=== PATIENT | female | born 1990 | race Caucasian/White ===

== ENCOUNTER 2017-01-02 19:19 | Emergency (ER) | payer BC ==
[2017-01-02 19:26] VITALS: BP 126/72
[2017-01-02] MEDS ORDERED: methylPREDNISolone Sodium Succinate 125 MG/2 ML SDV IM ONE (20:29)
--- NOTE | 2017-01-02 20:35 | EDM.PDOC ---
ED HPI GENERAL MEDICAL PROBLEM - General Chief Complaint: Neurological Problem Stated Complaint: ROMANO'S PALSY Time Seen by Provider: 01/02/17 20:30 Source of Information: Reports: Patient History Limitations: Reports: No Limitations - History of Present Illness INITIAL COMMENTS - FREE TEXT/NARRATIVE: recurrent h/o romano's palsy during . 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 ED EXAM, NEURO - Physical Exam Exam: See Below Exam Limited By: No Limitations General Appearance: Alert, WD/WN, Mild Distress, Other (distraught) Ears: Hearing Grossly Normal Throat/Mouth: Normal Voice, No Airway Compromise Head Exam: Atraumatic Neck: Non-Tender, Full Range of Motion Respiratory/Chest: No Respiratory Distress Cardiovascular: Regular Rate, Rhythm GI/Abdominal: Soft, Non-Tender Neurological: Alert, Normal Mood/Affect, Normal Gait, Oriented x 3, Other ( right Romano's palsy droop) Extremities: No: Increased Warmth Psychiatric: Normal Affect, Normal Mood Skin Exam: Warm, Dry Course - Vital Signs Last Recorded V/S: Last Vital Signs Temp 36.6 C 01/02/17 19:22 Pulse 90 01/02/17 19:22 Resp 18 01/02/17 19:22 BP 126/72 01/02/17 19:22 Pulse Ox 97 01/02/17 19:22 - Orders/Labs/Meds Meds: Medications Discontinued Medications Generic Name Dose Route Start Last Admin Trade Name Freq PRN Reason Stop Dose Admin Methylprednisolone Sodium Succinate 125 mg 01/02/17 20:29 Solu-Medrol IM 01/02/17 20:30 ONETIME ONE Departure - Departure Time of Disposition: 20:33 Disposition: Home, Self-Care 01 Condition: Good Clinical Impression: Romano's palsy - Discharge Information Instructions: Romano Palsy Forms: ED Department Discharge Additional Instructions: 1) rest 2) use eye drops to right eye for discomfort 3) recheck is there is any change or concern rx given; medrol dospak
== END 2017-01-02 20:48 | disposition home or self-care (01) ==
LOC: DL.ED 19:19
DX: G51.0 Bell's palsy (principal); Z79.899 Other long term (current) drug therapy
CPT/HCPCS: 99283; J2930

== ENCOUNTER 2017-07-01 03:38 | Inpatient (IN) | payer BC ==
[2017-07-01] MEDS: Lactated Ringers 1,000 ML IV SCH ×2 (04:02→05:09)
[2017-07-01] MEDS ORDERED: Lactated Ringers 500 ML IV ONE (04:39)
[2017-07-01] MEDS ORDERED: Ondansetron 4 MG/2 ML SDV IV PRN (04:39)
[2017-07-01] MEDS ORDERED: Misoprostol 400 MCG (4 X 100 MCG TAB) RECTAL PRN (04:39)
[2017-07-01] MEDS ORDERED: Lidocaine 1% 30 ML SDV INJECT PRN (04:39)
[2017-07-01] MEDS ORDERED: Sodium Chloride 0.9% 10 ML Syringe FLUSH PRN ×2 (04:39→07:46)
[2017-07-01] MEDS ORDERED: Carboprost Tromethamine 250 MCG/1 ML Amp IM PRN (04:39)
[2017-07-01] MEDS ORDERED: Methylergonovine 0.2 MG/1 ML Amp IM PRN (04:39)
[2017-07-01] MEDS ORDERED: Acetaminophen 325 MG Tab PO PRN (04:39)
[2017-07-01] MEDS ORDERED: Oxytocin/Normal Saline 30 UNIT/500 ML BAG IV SCH (04:45)
[2017-07-01] MEDS ORDERED: fentaNYL 100 MCG/2 ML SDV ONE (04:54)
[2017-07-01] MEDS ORDERED: EPINEPHrine 1 MG/ML SDV ONE (04:55)
--- NOTE | 2017-07-01 05:34 | PCM.PRNOTE ---
- Free Text/Narrative Note: Requested to provide analgesia to full term patient in severe pain. Upon entering the room, patient is sitting on side of bed, complaining of severe abdominal pain and discomfort. Procedure was discussed with patient including adverse outcomes and expectations. Pt consented to analgesia, SAB/IT. Pt placed into a sitting position. Landmarks for SAB/IT were identified and marked. Back was prepped with betadine x3. A sterile, transparent, fenestrated drape was applied. Excess betadine was removed. Using 3 mL of a 1% lidocaine solution, a skin wheel was placed at the L3/L4 interspace. A 24 ga (4 inch) Pencan spinal needle was inserted until positive for CSF. Negative for heme or paresthesias. Injected fentanyl 20 mcg, sufentanil 10 mcg, and 9.75 mg of a 0.75% bupivacaine solution with an epi wash. Pt was placed left lateral position for approximately 20 minutes. There were zero complications or adverse outcomes. Will continue to monitor.
--- NOTE | 2017-07-01 07:06 | HP ---
PATIENT IDENTIFICATION: Cyndy Oshea is a 27-year-old G3, P1-1-0-2, intrauterine at 38-1/7 weeks confirmed with 20-2/7 weeks' ultrasound, who presents with contractions. HISTORY OF PRESENT ILLNESS: The patient has been seen in the clinic being 2+ cm over the last few weeks. She was evaluated earlier on the day before admission and was found to be 3+ cm. She subsequently was sent home as she was not having contractions and was followed closely. Night before admission at approximately 9 p.m., she started having contractions increasing in intensity and felt across the abdomen. They got worse over time until 1:30 in the morning on date of admission, where they became more frequent every 3 to 5 minutes, felt in the lower abdomen, radiating up to the upper abdomen, described as tightening, rated 8/10 and getting worse over time, nothing seemed to make them better. She subsequently presented to the hospital. She was initially evaluated by nurse and found to be 5 cm. Admission process started thereafter. Records were called for, reviewed as below, and supplemented by patient history. ANTEPARTUM LABS: ABO blood type A positive, negative antibody. Rubella immune. RPR nonreactive. Negative hepatitis B surface antigen, hep C, HIV, GC, and Chlamydia. Wet prep within normal limits. One-hour GTT was 94. Last platelets from the clinic were 175,000. GBS was negative in the third trimester. OBSTETRICAL HISTORY: 1. 36-5/7 weeks, delivered a female, spontaneous vaginal delivery, weighing 3005 g, complicated by thrombocytopenia. 2. 06/14/2014, 38 weeks, delivered a female via vacuum-assisted vaginal delivery weighing 3374 g. ALLERGIES: None. MEDICATIONS: vitamins. PAST MEDICAL/PAST SURGICAL HISTORY: Remarkable for tonsil and adenoidectomy. Baby tooth extraction when she was a child and wisdom teeth in 01/2015. History of chickenpox as a child and delivery as noted as above. FAMILY HISTORY: Maternal grandmother had liver cancer and is . Maternal grandfather had blood clot disorder. No known disease in mother or father. Sister has Olivarez's. Negative family history of defects, anesthesia problems, or bleeding problems. SOCIAL HISTORY: Cyndy works at the [employer] in [place]. , Bari, is a prince. They live right outside of [place] [address] [place]. No alcohol, tobacco, or drug use. Sexually active with male partner. REVIEW OF SYSTEMS: Otherwise reviewed and felt to be noncontributory. OBJECTIVE: Vital Signs: Blood pressure 114/78, heart rate is around 100 to 110, and temperature 99.1. Appearance: Female appears stated age, acting appropriate. Nontoxic appearance. Breathing through contractions, but answering questions appropriately in between. HEENT: Head is atraumatic. EOMs intact. PERRLA. No scleral icterus. No ovious otorhinnorhea. Mucous membranes are moist. Neck: No obvious tenderness. Lungs: Clear to auscultation bilaterally. No increased work of breathing. Heart: S1 and S2. Regular rate and rhythm. Abdomen: Gravid, Contreras's indeterminate, nontender, and nondistended. Bowel sounds positive. No other organomegaly, pulsatile masses, or obvious hernias. No rebound, rigidity, or guarding. Genitourinary: Normal external female genitalia. Normal position and presentation of urethra. Vaginal exam was 7 cm by my evaluation, 80% to 90% effaced, 0 station, vertex suspected. Bag of water felt and bulging. Extremities: Trace pedal edema. Deep tendon reflexes 2 to 3/4 bilaterally and symmetric in lower extremities. PSYCHIATRIC: Mood and affect are congruent. Judgment and insight are intact. Skin: Without cyanosis, clubbing, or jaundice. INVESTIGATIONS: White cell count 9.7, hemoglobin 11.2, and platelets 140,000. NST is found to be reactive and reassuring. Tocometer reveals contractions up to every 2 to 5 minutes apart. heart tone baseline is around 140s to 150s. ASSESSMENT AND PLAN: 1. Intrauterine at 38-1/7 weeks confirmed with 20-2/7 weeks' ultrasound. 2. Active labor. 3. Advanced cervical dilation that is rapidly advancing. 4. History of fast deliveries. 5. Group B Streptococcus negative. 6. Gestational thrombocytopenia, platelets 140,000. 7. 3, para 1-1-0-2. PLAN: The patient is requesting intrathecal. We will get this as soon as possible and then consider following her closely with artificial rupture of membranes thereafter. She understands and agrees with the above treatment plan. Otherwise, we will follow closely. [facility] /[id number]
[2017-07-01] MEDS ORDERED: Zolpidem 5 MG Tab PO PRN (07:46)
[2017-07-01] MEDS ORDERED: Simethicone 80 MG Tab.Chew PO PRN (07:46)
[2017-07-01] MEDS ORDERED: Benzocaine/Menthol 20%-0.5% Spray 56 GM Canister TOP PRN (07:46)
[2017-07-01] MEDS ORDERED: Oxytocin 10 Units/1 ML SDV IM PRN (07:46)
--- NOTE | 2017-07-01 07:48 | PN ---
DATE: 07/01/2017 SUBJECTIVE: The patient is now pain-free, status post intrathecal. OBJECTIVE: Blood pressure 106/66. heart tones in the 140s to 150s range and felt to be reassuring. Tocometer reveals contractions every 2 to 5 minutes apart. Vaginal exam reveals her to be 7+ cm, 90% effaced, 0 station, vertex suspected. Artificial rupture of membranes done yielding copious amounts of clear fluid. ASSESSMENT AND PLAN: Intrauterine at 38 and 1/7 weeks with active labor, advanced cervical dilation, now status post intrathecal and status post artificial rupture of membranes. We will continue to follow clinically and closely. [facility] /[id number]
--- NOTE | 2017-07-01 10:24 | DEL ---
DATE: 07/01/2017 PREOPERATIVE DIAGNOSES: 1. Intrauterine at 38-1/7 weeks, confirmed with 20-2/7 weeks' ultrasound. 2. Active labor upon admission. 3. Advanced cervical dilation. 4. History of fast deliveries. 5. Lives far from town. 6. Group B Streptococcus negative. 7. Gestational thrombocytopenia, platelets 140. 8. 3, para 1-1-0-2. POSTOPERATIVE DIAGNOSES: 1. Intrauterine at 38-1/7 weeks, confirmed with 20-2/7 weeks' ultrasound-delivered. 2. Active labor upon admission. 3. Advanced cervical dilation. 4. History of fast deliveries. 5. Lives far from town. 6. Group B Streptococcus negative. 7. Gestational thrombocytopenia, platelets 140. 8. 3, para 1-1-0-2. 9. Cord avulsion with delivery of the placenta. PROCEDURES PERFORMED: NST, artificial rupture of membranes, and spontaneous vaginal delivery on 07/01/2017. ANESTHESIA/ANALGESIA: The patient did receive an intrathecal in the first stage of labor. ESTIMATED BLOOD LOSS: 300 mL. FINDINGS: Female, scores of 8 and 9, weight pending. SUMMARY OF EVENTS: The patient is a 27-year-old, G3, P1-1-0-2, intrauterine at 38-1/7 weeks, admitted on 07/01/2017, in active labor with advanced cervical dilation. She went from 5 cm to 7 cm in less than hour, received her intrathecal, then underwent artificial rupture of membranes and followed closely thereafter. She had the urge to push with feeling cramps/contractions. I was called to the room. She was found to be in the second stage of labor. I donned with sterile gown and gloves. She started pushing with contractions. vertex was delivered in LORELEI presentation followed by anterior and posterior shoulder as well as rest of the without difficulty. Mouth and nares were suctioned. was resuscitated on mother's abdomen. Cord was then doubly clamped and cut. Then, approximately 10 mL of cord blood was obtained for labs. Placenta was then delivered with gentle cord traction and fundal massage within 10 minutes with cord avulsion noted with placenta seen at the vaginal introitus. After this happened, I was able to manually extract the placenta by grasping where the cord was inserted and pulling gently. Pitocin and fundal massage ensued thereafter, bleeding decreased. Perineum, vagina, and perirectal areas were examined and noted to have a small first-degree perineal laceration, nonbleeding, non-repaired after discussion with the patient. Mother and infant are currently stable at the time of dictation. [facility] /[id number]
--- NOTE | 2017-07-01 10:45 | OBOUT ---
DATE: 07/01/2017 DATE AND TIME OF NST: Date: 07/01/2017. Time: 4:14 to 4:34. REASON FOR NST: 1. Intrauterine at 38 and 1/7 weeks, confirmed with 20 and 2/7 week ultrasound. 2. Active labor. 3. Advanced cervical dilation. 4. History of fast deliveries. 5. Group B strep negative. 6. Gestational thrombocytopenia with platelets of 140. 7. 3, para 1-1-0-2. NST INTERPRETATION: During this time period, heart tone baseline is approximately 150, and there are at least two 15 x 15 beat per minute accelerations, making this strip reactive. It is also noted to be reassuring. Tocometer reveals potential 6 contractions felt by patient. ASSESSMENT: 1. Nonstress test, reactive and reassuring. 2. Tocometer with contractions. PLAN: Please see admit history and physical for further details. [facility] /[id number]
[2017-07-01] MEDS: Prenatal Multivitamin with Calcium/Folic Acid/Iron Tab PO SCH (14:25)
[2017-07-01] MEDS: Ibuprofen 800 MG Tab PO PRN (21:16)
[2017-07-01] MEDS: Docusate Sodium 100 MG Cap PO PRN (21:17)
[2017-07-02] MEDS: Prenatal Multivitamin with Calcium/Folic Acid/Iron Tab PO SCH (08:56)
[2017-07-02] MEDS: Ibuprofen 800 MG Tab PO PRN ×2 (08:56→20:53)
--- NOTE | 2017-07-02 10:58 | PN ---
DATE: 07/02/2017 day #1, status post spontaneous vaginal delivery. SUBJECTIVE: The patient is tolerating p.o., ambulating, urinating, passing flatus. OBJECTIVE: Vital Signs: Last set of vitals; temperature 98.2, heart rate 70, blood pressure 110/56, respiratory rate 16. Lungs: Clear to auscultation bilaterally. Heart: S1-S2. Regular rate and rhythm. Pelvic: Firm uterus around the umbilicus. Extremities: No peripheral edema. No calf pain. LABORATORY DATA: White cell count 7.6, hemoglobin 10.4, compared to predelivery hemoglobin 11.2, and platelets of a 120,000 compared to 140,000 upon admit. ASSESSMENT: 1. day #1 status post spontaneous vaginal delivery. 2. Gestational thrombocytopenia. Platelets are decreasing. We will check CBC tomorrow and follow clinically and closely. No obvious signs of active bleeding or concerns are noted at this point in time. Possible discharge tomorrow. This was discussed with patient. She understands and agrees the above treatment plan. [facility] /[id number]
[2017-07-02] MEDS ORDERED: fentaNYL 100 MCG/2 ML SDV ITHECAL ONE (15:36)
[2017-07-02] MEDS ORDERED: EPINEPHrine 1 MG/ML SDV ONE (15:36)
[2017-07-02] MEDS: Docusate Sodium 100 MG Cap PO PRN (20:55)
[2017-07-03] MEDS: Prenatal Multivitamin with Calcium/Folic Acid/Iron Tab PO SCH (07:59)
[2017-07-03] MEDS: Ibuprofen 800 MG Tab PO PRN (07:59)
[2017-07-03] MEDS: Docusate Sodium 100 MG Cap PO PRN (07:59)
[2017-07-03 10:21] VITALS: BP 114/69
--- NOTE | 2017-07-04 07:48 | DISCH ---
ADMIT DIAGNOSES: 1. Intrauterine at 38 and 1/7 weeks, confirmed with 20 and 2/7 weeks' ultrasound. 2. Active labor. 3. Advanced cervical dilation. 4. History of fast deliveries. 5. Living far from the hospital. 6. Group B Streptococcus negative. 7. Gestational thrombocytopenia, platelets of 140,000 upon admit. 8. 3, para 1-1-0-2. DISCHARGE DIAGNOSES: 1. Intrauterine at 38 and 1/7 weeks, confirmed with 20 and 2/7 weeks' ultrasound, delivered. 2. Active labor. 3. Advanced cervical dilation. 4. History of fast deliveries. 5. Living far from the hospital. 6. Group B Streptococcus negative. 7. Gestational thrombocytopenia, platelets of 140,000 upon admit. 8. 3, para 1-1-0-2. 9. Cord avulsion with delivery of the placenta requiring minimal extraction of the placenta at the vaginal introitus. PROCEDURES PERFORMED: NST, artificial rupture of membranes, spontaneous vaginal delivery on 07/01/2017. PROCEDURE PERFORMED: Steve Santos MD HISTORY OF PRESENT ILLNESS: Please see H and P. SUMMARY OF HOSPITAL COURSE: The patient was admitted on the above date with the above diagnosis, underwent above procedures, then went on to have a spontaneous vaginal delivery yielding a female with scores of 8 and 9, weighing 3575 g (7 pounds 14 ounces). Please see delivery note for further details. day #1, please see progress note. day #2, date of discharge, the patient was tolerating p.o., ambulating, urinating, passing flatus, and requesting discharge. PHYSICAL EXAMINATION: Vital Signs: Last set of vitals updated and listed in the chart. Temperature 98, heart rate 66, blood pressure 120/74, respiratory rate 16. Lungs: Clear to auscultation bilaterally. Heart: S1 and S2. Regular rate and rhythm. Pelvic: Firm uterus, -1 below umbilicus. No peripheral edema. No calf pain. DISCHARGE LABS: White cell count 6.2, hemoglobin 11.3, compared to predelivery hemoglobin 11.2, platelets 145,000 which has increased from admit platelets. CONDITION ON DISCHARGE COMPARED TO CONDITION ON ADMISSION: Improved. DISCHARGE INSTRUCTIONS: Diet. As tolerated. Activity: No lifting more than 20 pounds. No sit-ups or straining. Pelvic rest for the next 6 weeks with immediate return to fertility discussed with the patient. Reasons to return or go to the emergency room were discussed with the patient in detail including but not limited to, temperature greater than 100.4, foul- smelling discharge, red or hot breasts, or increased vaginal bleeding. DISCHARGE MEDICATIONS: 1. [id number] Tylenol or ibuprofen for pain. 2. vitamins x6 weeks. FOLLOWUP: Follow up in 6 weeks . I did discuss in the interim the reasons to return or go to the emergency room in regard to her infant as well as importance of followup and ramifications of not doing so. She understands and agrees with the above treatment plan. [facility] /[id number]
== END 2017-07-03 10:50 | disposition home or self-care (01) | DRG 560 ==
LOC: DL.OBCHECK 03:38 → DL.OB 03:58 → OBSVTOIN 07:31 → DL.OB 07:31 → DL.MS 21:59
PROVIDERS: ADMIT Family Medicine; ATTEND Family Medicine
PROC: 10E0XZZ Delivery of Products of Conception, External Approach (ICD-10-PCS; principal; 2017-07-01)
PROC: 10907ZC Drainage of Amniotic Fluid, Therapeutic from Products of Conception, Via Natural or Artificial Opening (ICD-10-PCS; 2017-07-01)
PROC: 00HU33Z Insertion of Infusion Device into Spinal Canal, Percutaneous Approach (ICD-10-PCS; 2017-07-01)
PROC: 3E0R3BZ Introduction of Anesthetic Agent into Spinal Canal, Percutaneous Approach (ICD-10-PCS; 2017-07-01)
DX: O99.12 Other diseases of the blood and blood-forming organs and certain disorders involving the immune mechanism complicating childbirth (principal); D69.6 Thrombocytopenia, unspecified; O70.0 First degree perineal laceration during delivery; Z3A.38 38 weeks gestation of pregnancy; Z37.0 Single live birth
CPT/HCPCS: 36415; 59409; 85027; A9270-GY; J0171; J2405; J2590; J3010; J7120

== ENCOUNTER 2023-06-07 15:05 | Inpatient (IN) | payer BC ==
[2023-06-07] MEDS ORDERED: Methylergonovine 0.2 MG/1 ML Amp IM PRN (15:59)
[2023-06-07] MEDS ORDERED: Ondansetron 4 MG/2 ML SDV IVPUSH PRN (15:59)
[2023-06-07] MEDS ORDERED: Sodium Chloride 0.9% 10 ML Syringe FLUSH PRN ×2 (15:59→20:03)
[2023-06-07] MEDS ORDERED: Tranexamic Acid 1,000 MG in Sodium Chloride 0.9% 100 ML IV PRN (15:59)
[2023-06-07] MEDS ORDERED: Misoprostol 400 MCG (4 X 100 MCG TAB) RECTAL PRN (15:59)
[2023-06-07] MEDS ORDERED: Carboprost Tromethamine 250 MCG/1 ML Amp IM PRN (15:59)
[2023-06-07] MEDS ORDERED: Lidocaine 1% 30 ML SDV INJECT ONE (15:59)
[2023-06-07] MEDS ORDERED: Acetaminophen 325 MG Tab PO PRN (15:59)
[2023-06-07] MEDS ORDERED: Lactated Ringers 1,000 ML IV ONE (15:59)
[2023-06-07] MEDS ORDERED: Oxytocin/Normal Saline 30 UNIT/500 ML BAG IV SCH (16:00)
[2023-06-07 16:25] LABS: HEMATOCRIT 35.4 % (37.0-47.0); HEMOGLOBIN 11.8 g/dL (12.0-16.0); MEAN CORPUSCULAR HEMOGLOBIN 31.2 pg (27.0-34.0); MEAN CORPUSCULAR HGB CONC 33.3 g/dL (33.0-35.0); MEAN CORPUSCULAR VOLUME 93.7 fL (80-100); RED BLOOD CELL COUNT 3.78 10^6/uL (4.2-5.4); WHITE BLOOD CELL COUNT,WBC 7.3 10^3/uL (5.0-10.0)
[2023-06-07] MEDS: Lactated Ringers 1,000 ML IV SCH ×2 (18:10→19:40)
[2023-06-07] MEDS ORDERED: Bupivacaine 0.25% 10 ML SDV ONE (18:22)
[2023-06-07] MEDS ORDERED: fentaNYL 100 MCG/2 ML SDV ONE (18:22)
[2023-06-07] MEDS ORDERED: ePHEDrine 50 MG/ML SDV IVPUSH PRN (18:44)
[2023-06-07] MEDS ORDERED: Phenylephrine HCl In 0.9% NaCl 1 MG/10 ML Syringe IVPUSH PRN (18:44)
[2023-06-07] MEDS ORDERED: Ropivacaine 200 MG in Premix Bag 1 BAG EPIDUR SCH (18:45)
[2023-06-07] MEDS ORDERED: Oxytocin 10 Units/1 ML SDV IM PRN (20:03)
[2023-06-07] MEDS ORDERED: Zolpidem 5 MG Tab PO PRN (20:03)
[2023-06-07] MEDS ORDERED: Benzocaine/Menthol 20%-0.5% Spray 78 GM Cannister TOP PRN (20:03)
[2023-06-07] MEDS ORDERED: Simethicone 80 MG Tab.Chew PO PRN (20:03)
[2023-06-07] MEDS: Ibuprofen 800 MG Tab PO PRN (22:27)
[2023-06-08 06:27] LABS: HEMATOCRIT 31.2 % (37.0-47.0); HEMOGLOBIN 10.4 g/dL (12.0-16.0); MEAN CORPUSCULAR HEMOGLOBIN 31.7 pg (27.0-34.0); MEAN CORPUSCULAR HGB CONC 33.3 g/dL (33.0-35.0); MEAN CORPUSCULAR VOLUME 95.1 fL (80-100); RED BLOOD CELL COUNT 3.28 10^6/uL (4.2-5.4); WHITE BLOOD CELL COUNT,WBC 8.2 10^3/uL (5.0-10.0)
[2023-06-08] MEDS: Prenatal Multivitamin with Calcium/Folic Acid/Iron Tab PO SCH (09:50)
[2023-06-08] MEDS: Docusate Sodium 100 MG Cap PO PRN (09:50)
[2023-06-08] MEDS: Ibuprofen 800 MG Tab PO PRN (16:44)
[2023-06-09 08:34] VITALS: BP 134/48; PULSE 79
[2023-06-09] MEDS: Prenatal Multivitamin with Calcium/Folic Acid/Iron Tab PO SCH (08:40)
[2023-06-09] MEDS: Ibuprofen 800 MG Tab PO PRN (08:41)
[2023-06-09] MEDS: Docusate Sodium 100 MG Cap PO PRN (08:41)
== END 2023-06-09 10:00 | disposition home or self-care (01) | DRG 560 ==
LOC: DL.OBCHECK 15:05 → DL.OB 15:58 → OBSVTOIN 19:57
PROVIDERS: ADMIT Family Medicine; ATTEND Family Medicine
PROC: 10E0XZZ Delivery of Products of Conception, External Approach (ICD-10-PCS; principal; 2023-06-07)
PROC: 10907ZC Drainage of Amniotic Fluid, Therapeutic from Products of Conception, Via Natural or Artificial Opening (ICD-10-PCS; 2023-06-07)
PROC: 3E0R3BZ Introduction of Anesthetic Agent into Spinal Canal, Percutaneous Approach (ICD-10-PCS; 2023-06-07)
PROC: 00HU33Z Insertion of Infusion Device into Spinal Canal, Percutaneous Approach (ICD-10-PCS; 2023-06-07)
DX: O69.81X0 Labor and delivery complicated by cord around neck, without compression, not applicable or unspecified (principal); Z37.0 Single live birth; Z98.890 Other specified postprocedural states; Z90.89 Acquired absence of other organs; Z3A.38 38 weeks gestation of pregnancy
CPT/HCPCS: 36415; 59409; 84112; 85027; A9270-GY; J2590; J2795; J7120